=== PATIENT | male | born 2000 | race African-American/Black ===

== ENCOUNTER 2022-05-01 12:24 | Outpatient (CLI) | payer OTHER ==
[2022-05-01 17:49] LABS: BASOPHILS % (AUTO) 0.4 %; EOSINOPHILS # (AUTO) 0.1 10^3/uL (0.0-0.7); EOSINOPHILS % (AUTO) 0.9 %; LYMPHOCYTES # (AUTO) 2.4 10^3/uL (1.5-3.5); MEAN CORPUSCULAR HEMOGLOBIN 30.8 pg (27.0-31.0); MEAN CORPUSCULAR HGB CONC 33.3 g/dL (32.0-36.0); MEAN CORPUSCULAR VOLUME 92.4 fL (80.0-94.0); MEAN PLATELET VOLUME 11.1 fL (7.4-11.4); MONOCYTES # (AUTO) 0.4 10^3/uL (0.0-1.0); MONOCYTES % (AUTO) 7.5 %; NEUTROPHILS # (AUTO) 2.4 10^3/uL (1.5-6.6); PLT - PLATELET COUNT 186 10^3/uL (130-450); RED BLOOD COUNT 4.87 10^6/uL (4.70-6.10); RED CELL DISTRIBUTION WIDTH 13.3 % (12.0-15.0); WHITE BLOOD COUNT 5.3 x10^3/uL (4.8-10.8)
[2022-05-01 17:58] LABS: CALCIUM 9.6 mg/dL (8.5-10.3); CREATININE 1.3 mg/dL (0.6-1.2); MAGNESIUM 2.4 mg/dL (1.7-2.8); POTASSIUM 4.3 mmol/L (3.5-5.0)
== END 2022-05-01 12:25 | disposition home or self-care (01) ==
LOC: LAB.N 12:24
PROVIDERS: ATTEND Physician Assistant
DX: R00.2 Palpitations (principal)
CPT/HCPCS: 36415; 80048; 83735; 84443; 85025

== ENCOUNTER 2022-05-01 20:36 | Outpatient (CLI) | payer OTHER | END 2022-05-01 23:59 | disposition critical access hospital (66) | LOC: EMS 20:36 | DX: R07.89 Other chest pain (principal) ==

== ENCOUNTER 2022-05-01 21:32 | Emergency (ER) | payer OTHER ==
[2022-05-01 22:09] LABS: BASOPHILS % (AUTO) 0.5 %; EOSINOPHILS # (AUTO) 0.1 10^3/uL (0.0-0.7); EOSINOPHILS % (AUTO) 1.7 %; HCT - HEMATOCRIT 43.3 % (42.0-52.0); HGB - HEMOGLOBIN 14.8 g/dL (14.0-18.0); LYMPHOCYTES # (AUTO) 3.4 10^3/uL (1.5-3.5); LYMPHOCYTES % (AUTO) 56.9 %; MEAN CORPUSCULAR HGB CONC 34.2 g/dL (32.0-36.0); MEAN CORPUSCULAR VOLUME 90.8 fL (80.0-94.0); MONOCYTES # (AUTO) 0.5 10^3/uL (0.0-1.0); MONOCYTES % (AUTO) 8.9 %; NEUTROPHILS # (AUTO) 1.9 10^3/uL (1.5-6.6); PLT - PLATELET COUNT 165 10^3/uL (130-450); RED BLOOD COUNT 4.77 10^6/uL (4.70-6.10); RED CELL DISTRIBUTION WIDTH 13.2 % (12.0-15.0); WHITE BLOOD COUNT 6.1 x10^3/uL (4.8-10.8)
--- NOTE | 2022-05-01 22:15 | XRAY Report ---
PROCEDURE: Chest 1 View X-Ray INDICATIONS: chest pain TECHNIQUE: One view of the chest was acquired. COMPARISON: None. FINDINGS: Surgical changes and devices: None. Lungs and pleura: No pleural effusions or pneumothorax. Lungs are clear. Mediastinum: Mediastinal contours appear normal. Heart size is normal. Bones and chest wall: No suspicious bony lesions. Overlying soft tissues appear unremarkable. IMPRESSION: 1. No acute cardiopulmonary disease. Reviewed by: Abdoulaye Sparks MD on 05/01/2022 10:13 PM PDT Approved by: Abdoulaye Sparks MD on 05/01/2022 10:13 PM PDT Station ID: [id number]
[2022-05-01 22:32] LABS: ALBUMIN 3.9 g/dL (3.2-5.5); ALBUMIN/GLOBULIN RATIO 1.3 (1.0-2.2); BILIRUBIN,TOTAL 0.4 mg/dL (0.2-1.0); CALCIUM 9.1 mg/dL (8.5-10.3); CREATININE 1.3 mg/dL (0.6-1.2); POTASSIUM 3.6 mmol/L (3.5-5.0)
--- NOTE | 2022-05-02 00:49 | ED Physician Documentation ---
PD HPI CHEST PAIN - Stated complaint Stated Complaint: CHEST TIGHTNESS - Chief complaint Chief Complaint: Cardiac - History obtained from History obtained from: Patient - Additional information Additional information: 21yM with reported history of undiagnosed anxiety and depression p/w multiple symptoms tonight. Patient states he has been having palpitations, cp worse with exertion, tingling in the extremities, especially LLE, and pulsing behind the eyes when he blinks. patient has experienced depression and anxiety in the past but states he is taking several supplements that seem to alleviate these symptoms. Review of Systems Constitutional: denies: Fever Cardiac: reports: Chest pain / pressure, Palpitations Respiratory: denies: Dyspnea, Cough PD PAST MEDICAL HISTORY - Present Medications Home Medications: Ambulatory Orders Medication Instructions Recorded Confirmed hydrOXYzine pamoate [Hydroxyzine 25 mg PO TID PRN #20 cap 05/02/22 Pamoate] - Allergies Allergies/Adverse Reactions: Allergies Allergy/AdvReac Type Severity Reaction Status Date / Time No Known Drug Allergies Allergy Verified 05/01/22 21:53 Results - Vitals Vitals: Vital Signs - 24 hr 05/01/22 05/01/22 05/01/22 21:45 22:22 23:24 Temperature 36.8 C Heart Rate 57 L 65 58 L Respiratory 18 15 11 L Rate Blood Pressure 132/87 H 123/86 H 129/91 H O2 Saturation 100 100 100 05/01/22 05/02/22 05/02/22 23:30 00:00 00:30 Temperature Heart Rate 66 59 L 62 Respiratory 16 15 16 Rate Blood Pressure 118/76 118/76 119/72 O2 Saturation 99 100 100 05/02/22 05/02/22 01:00 02:00 Temperature Heart Rate 62 62 Respiratory 16 17 Rate Blood Pressure 124/76 124/78 O2 Saturation 100 99 Oxygen O2 Source Room air - EKG (time done) 2135 EKG releavant findings:: EKG personally interpreted by author of this note. Relevant findings are: Rate: Rate (enter#) (63) Rhythm: NSR Wallace: Normal Intervals: Normal NE QRS: Normal Ischemia: ST elevation c/w repol - Labs Labs: Laboratory Tests 05/01/22 05/01/22 05/01/22 21:54 21:54 21:54 WBC 6.1 RBC 4.77 Hgb 14.8 Hct 43.3 MCV 90.8 MCH 31.0 MCHC 34.2 RDW 13.2 Plt Count 165 MPV 10.0 Neut # (Auto) 1.9 Lymph # (Auto) 3.4 Jerome # (Auto) 0.5 Eos # (Auto) 0.1 Baso # (Auto) 0.0 Absolute Nucleated RBC 0.00 Nucleated RBC % 0.0 Sodium 136 Potassium 3.6 Chloride 102 Carbon Dioxide 27 Anion Gap 7.0 BUN 14 Creatinine 1.3 H Estimated GFR (MDRD) 85 L Glucose 98 Calcium 9.1 Total Bilirubin 0.4 AST 33 ALT 24 Alkaline Phosphatase 46 Troponin I High Sens 4.3 Total Protein 7.0 Albumin 3.9 Globulin 3.1 Albumin/Globulin Ratio 1.3 Lipase 34 PD Medical Decision Making - ED course ED course: 21yM, previously healthy p/w cp, palpitations, tingling and other nonspecific symptoms. He is taking several supplements. I checked the ingredients of the ones he told me and they are benign. vitals and exam were unremarkable. PERC negative. Patient is extremely low risk for cardiac cause of symptoms. labwork, ekg, cxr uncovered no issues. discussed possibility he is having anxiety attacks and he agreed to try atarax as needed. return precautions given. [place]. Departure - Departure Disposition: Home, Self Care Condition: Good Instructions: ED Chest Pain NonCardiac Prescriptions: hydrOXYzine pamoate [Hydroxyzine Pamoate] 25 mg PO TID PRN #20 cap PRN Reason: Anxiety Comments: You were seen in the emergency department for multiple symptoms. Your lab work uncovered no emergent cause for your symptoms, your EKG was okay, and your chest x-ray was normal. [place] management of possible panic attacks. I have sent an electronic prescription for Atarax (generic hydroxyzine) to your pharmacy that can be taken as needed when you feel the symptoms we discussed. Return to the emergency department for new or worsening symptoms or if you have other concerns. Discharge Date/Time: 05/02/22 02:06
[2022-05-02 02:06] VITALS: BP 124/78
== END 2022-05-02 02:06 | disposition home or self-care (01) ==
LOC: EDUNIT# → ED 21:32
DX: R00.2 Palpitations (principal); R07.9 Chest pain, unspecified; R20.2 Paresthesia of skin; H57.89 Other specified disorders of eye and adnexa
CPT/HCPCS: 36415; 80048; 80053; 83690; 83735; 84443; 84484; 85025; 93005; 99284

== ENCOUNTER 2022-05-10 02:50 | Outpatient (CLI) | payer OTHER | END 2022-05-10 23:59 | disposition critical access hospital (66) | LOC: EMS 02:50 | DX: R07.89 Other chest pain (principal); F41.9 Anxiety disorder, unspecified | CPT/HCPCS: A0425; A0429 ==

== ENCOUNTER 2022-05-10 03:17 | Emergency (ER) | payer OTHER ==
[2022-05-10 04:32] LABS: BASOPHILS % (AUTO) 0.5 %; EOSINOPHILS # (AUTO) 0.1 10^3/uL (0.0-0.7); EOSINOPHILS % (AUTO) 1.3 %; HCT - HEMATOCRIT 47.8 % (42.0-52.0); HGB - HEMOGLOBIN 15.6 g/dL (14.0-18.0); LYMPHOCYTES # (AUTO) 3.4 10^3/uL (1.5-3.5); LYMPHOCYTES % (AUTO) 55.6 %; MEAN CORPUSCULAR HEMOGLOBIN 29.8 pg (27.0-31.0); MEAN CORPUSCULAR HGB CONC 32.6 g/dL (32.0-36.0); MEAN CORPUSCULAR VOLUME 91.4 fL (80.0-94.0); MEAN PLATELET VOLUME 10.5 fL (7.4-11.4); MONOCYTES # (AUTO) 0.5 10^3/uL (0.0-1.0); MONOCYTES % (AUTO) 7.3 %; NEUTROPHILS # (AUTO) 2.2 10^3/uL (1.5-6.6); NEUTROPHILS % (AUTO) 35.1 %; PLT - PLATELET COUNT 174 10^3/uL (130-450); RED BLOOD COUNT 5.23 10^6/uL (4.70-6.10); WHITE BLOOD COUNT 6.2 x10^3/uL (4.8-10.8)
--- NOTE | 2022-05-10 04:36 | ED Physician Documentation ---
PD HPI CHEST PAIN - Stated complaint Stated Complaint: CHEST PX - Chief complaint Chief Complaint: Cardiac - History obtained from History obtained from: Patient - Additional information Additional information: Is a 21-year-old male presenting for evaluation of chest pain that he noted around 1250 5 in the morning that feels like a pressure and throbbing in the left side of his chest. It does not radiate. He reports feeling his heart race And his body feels numb. He has had similar episodes of chest pain including 9 days ago at which time he was also seen in the emergency department.He reports r ecently feeling stressed about being told he has left ventricular hypertrophy. He was told this after being seen at the walk-in clinic and having an EKG done. He was started on Atarax at a prior ED visit. He took a dose this evening when his chest pain started but it did not improve. He is also followed up with the doctor in [place] [employer] on the and was given a prescription for Atarax and also a referral to the behavioral health clinic - Appointment is scheduled for May 11.Patient denies being on any other medications.He denies drug or alcohol use. He denies a history of early coronary artery disease in family members.Denies recent travel, history of PE. Review of Systems Constitutional: denies: Fever Cardiac: reports: Chest pain / pressure, Palpitations Respiratory: denies: Dyspnea GI: denies: Abdominal Pain Musculoskeletal: denies: Back pain Neurologic: denies: Headache PD PAST MEDICAL HISTORY - Present Medications Home Medications: Ambulatory Orders Medication Instructions Recorded Confirmed hydrOXYzine pamoate [Hydroxyzine 25 mg PO TID PRN #20 cap 05/02/22 05/10/22 Pamoate] - Allergies Allergies/Adverse Reactions: Allergies Allergy/AdvReac Type Severity Reaction Status Date / Time No Known Drug Allergies Allergy Verified 05/10/22 03:27 PD ED PE NORMAL - General General: Alert and oriented X 3, No acute distress, Well developed/nourished - HEENT HEENT: Atraumatic - Neck Neck: Supple, no meningeal sign - Cardiac Cardiac: RRR, No murmur - Respiratory Respiratory: No respiratory distress, Clear bilaterally - Abdomen Abdomen: Soft, Non tender, Non distended - Derm Derm: Warm and dry - Extremities Extremities: No edema, No calf tenderness / cord - Neuro Neuro: Normal speech Results - Vitals Vitals: Vital Signs - 24 hr 05/10/22 05/10/22 05/10/22 03:23 03:30 05:15 Temperature 36.7 C 36.7 C Heart Rate 57 L 57 L 56 L Respiratory 15 17 19 Rate Blood Pressure 122/81 H 122/81 H 118/74 O2 Saturation 99 100 100 Oxygen O2 Source Room air - EKG (time done) 0317 EKG releavant findings:: EKG personally interpreted by author of this note. Relevant findings are: Rate 60, normal sinus rhythm, no STEMI, QTc 396, No significant change when compared with EKG from 05/01/2022 Rate: Rate (enter#) (60) Rhythm: NSR Intervals: No: Prolonged QT Ischemia: No: ST elevation c/w ischemia Compare to prior EKG: Unchanged from prior EKG - Labs Labs: Laboratory Tests 05/10/22 05/10/22 05/10/22 04:28 04:28 04:28 WBC 6.2 RBC 5.23 Hgb 15.6 Hct 47.8 MCV 91.4 MCH 29.8 MCHC 32.6 RDW 13.0 Plt Count 174 MPV 10.5 Neut # (Auto) 2.2 Lymph # (Auto) 3.4 Green # (Auto) 0.5 Eos # (Auto) 0.1 Baso # (Auto) 0.0 Absolute Nucleated RBC 0.00 Nucleated RBC % 0.0 Sodium 141 Potassium 3.7 Chloride 103 Carbon Dioxide 27 Anion Gap 11.0 BUN 17 Creatinine 1.3 H Estimated GFR (MDRD) 85 L Glucose 93 Calcium 9.9 Total Bilirubin 0.8 AST 22 ALT 26 Alkaline Phosphatase 51 Troponin I High Sens 3.0 Total Protein 7.7 Albumin 4.6 Globulin 3.1 Albumin/Globulin Ratio 1.5 PD Medical Decision Making - ED course Complexity details: reviewed results, re-evaluated patient, d/w patient ED course: Patient presenting for evaluation of chest pain and palpitations for several hours. Recently seen 9 days ago for the same but with an unremarkable work-up. EKG is reassuring with a sinus rhythm without signs of arrhythmia or acute ischemia. Labs reviewed including CBC, chemistries and troponin without any significant findings. Creatinine is 1.3 which appears similar to prior labs. Chest x-ray which I reviewed is unremarkable for signs of consolidation, effusion,Cardiomegaly. Patient was sleeping in the emergency department and mishel cardonang better. Patient has no risk factors for ACS so feel this is very unlikely. PERC negative and also no known risk factors for dissection. He has outpatient follow-up scheduled for May 11 [place] which I feel could be helpful for him. He is counseled on concerning symptoms to return for. Departure - Departure Disposition: Home, Self Care Clinical Impression: Chest pain Condition: Stable Instructions: ED Chest Pain Atypical Unkn Cause Follow-Up: JOSELO Connolly [Provider Group] Comments: Your Labs again today are stable and there is no signs of a heart attack Or an irregular rhythm. Please continue to have close follow-up with [facility] as well as with your flight surgeon. If your symptoms change or worsen you are always welcome to return to the emergency department for another evaluation. Discharge Date/Time: 05/10/22 05:17
[2022-05-10 04:48] LABS: ALBUMIN 4.6 g/dL (3.2-5.5); ALBUMIN/GLOBULIN RATIO 1.5 (1.0-2.2); BILIRUBIN,TOTAL 0.8 mg/dL (0.2-1.0); CALCIUM 9.9 mg/dL (8.5-10.3); CREATININE 1.3 mg/dL (0.6-1.2); POTASSIUM 3.7 mmol/L (3.5-5.0); TOTAL PROTEIN 7.7 g/dL (6.7-8.2)
[2022-05-10 05:17] VITALS: BP 118/74
--- NOTE | 2022-05-10 08:16 | XRAY Report ---
PROCEDURE: Chest 1 View X-Ray INDICATIONS: CP TECHNIQUE: One view of the chest was acquired. COMPARISON: 05/01/2021. FINDINGS: Surgical changes and devices: None. Lungs and pleura: No pleural effusions or pneumothorax. Lungs are clear. Mediastinum: Mediastinal contours appear normal. Heart size is normal. Bones and chest wall: No suspicious bony lesions. Overlying soft tissues appear unremarkable. IMPRESSION: No acute cardiopulmonary pathology. No discrepancies. Reviewed by: Mj Correa MD on 05/10/2022 8:15 AM PDT Approved by: Mj Correa MD on 05/10/2022 8:15 AM PDT Station ID: [id number]
== END 2022-05-10 05:17 | disposition home or self-care (01) ==
LOC: ED 03:17
DX: R07.89 Other chest pain (principal)
CPT/HCPCS: 36415; 80053; 84484; 85025; 93005; 99283; 99284